=== PATIENT | male | born 2000 | race African-American/Black ===

== ENCOUNTER 2024-06-03 07:42 | Emergency (ER) | payer OTHER ==
[2024-06-03 07:49] VITALS: BP 122/65; PULSE 86; RESP 20; TEMP 99; BMI 26.4
[2024-06-03] MEDS ORDERED: KETOROLAC TROMETHAMINE 30 MG/1 ML VIAL ONE (08:12)
[2024-06-03] MEDS ORDERED: LIDOCAINE 4% PATCH TP ONE (08:12)
[2024-06-03] MEDS ORDERED: ACETAMINOPHEN 500 MG TABLET (FP) ONE (08:13)
[2024-06-03] MEDS: LIDOCAINE 4% PATCH TP ONE (08:25)
[2024-06-03] MEDS: KETOROLAC TROMETHAMINE 30 MG/1 ML VIAL IM ONE (08:25)
[2024-06-03] MEDS: ACETAMINOPHEN 500 MG TABLET (FP) PO ONE (08:25)
[2024-06-03] MEDS ORDERED: LIDOCAINE PATCH REMOVAL MC SCH (22:00)
== END 2024-06-03 08:35 | disposition home or self-care (01) ==
LOC: JERFT 07:42
PROC: 3E0133Z Introduction of Anti-inflammatory into Subcutaneous Tissue, Percutaneous Approach (ICD-10-PCS; principal; 2024-06-03)
DX: M54.50 Low back pain, unspecified (principal); M25.461 Effusion, right knee; V49.40XA Driver injured in collision with unspecified motor vehicles in traffic accident, initial encounter
CPT/HCPCS: 73560-TC-RT-FY; 99284-25